=== PATIENT | female | born 1980 | race Caucasian/White ===

== ENCOUNTER 2023-09-13 04:43 | Emergency (ER) | payer BC ==
[~2023-09-13] VITALS: Ht 160 cm; Wt 54.9 kg
[2023-09-13 05:12] VITALS: BP_SYST 130; PULSE 89; RESP 20; TEMP 97.3; O2SAT 100
[2023-09-13] MEDS ORDERED: NACL 0.9% 1,000 ML IV ONE (05:30)
[2023-09-13] MEDS ORDERED: MORPHINE 4 MG INJ. 4 MG/ML VIAL IVP ONE (05:30)
[2023-09-13] MEDS ORDERED: ONDANSETRON HCL 4 MG/2 ML VIAL ONE (05:41)
[2023-09-13] MEDS ORDERED: ONDANSETRON HCL 4 MG/2 ML VIAL IVP ONE (05:45)
[2023-09-13 06:04] LABS: BASOPHILS % (AUTO) 0.3 % (0.0-2.0); EOSINOPHILS # (AUTO) 0.1 K/uL (0.0-0.4); EOSINOPHILS % (AUTO) 3.1 % (0.0-4.0); HEMATOCRIT 31.6 % (36-48); HEMOGLOBIN 9.6 g/dL (12.0-16.0); LYMPHOCYTES % (AUTO) 24.3 % (20.5-51.5); MEAN CORPUSCULAR HEMOGLOBIN 21 pg (27-31); MEAN CORPUSCULAR HGB CONC 31 % (32-36); MEAN CORPUSCULAR VOLUME 68 fL (79.0-98.0); MONOCYTES # (AUTO) 0.5 K/uL (0.0-1.0); MONOCYTES % (AUTO) 11.7 % (1.7-9.3); NEUTROPHILS # (AUTO) 2.5 K/uL (1.8-7.7); NEUTROPHILS % (AUTO) 60.6 % (40.0-70.0); PLATELET COUNT (AUTO) 359 K/uL (130-430); RED BLOOD CELL COUNT(AUTO) 4.62 MIL/uL (4.2-6.2); RED CELL DISTRIBUTION WIDTH 18.7 % (9.0-15.0); WHITE BLOOD COUNT (AUTO) 4.2 K/uL (4.8-10.8)
[2023-09-13 06:17] LABS: CALCIUM 8.5 mg/dL (8.4-11.0); CREATININE 0.65 mg/dL (0.55-1.30); POTASSIUM 3.6 mmol/L (3.5-5.1)
[2023-09-13 06:21] LABS: BILIRUBIN,URINE NEGATIVE (NEGATIVE); BLOOD, URINE NEGATIVE (NEGATIVE); CLARITY/URINE SL CLOUDY (CLEAR); COLOR,URINE YELLOW (YELLOW); GLUCOSE,URINE NEGATIVE (NEGATIVE); KETONES,URINE NEGATIVE (NEGATIVE); NITRITE, URINE NEGATIVE (NEGATIVE); PROTEIN URINE TRACE (NEGATIVE); UROBILINOGEN,URINE 0.2 (0.2-1.0)
[2023-09-13 06:28] LABS: ALBUMIN 3.6 g/dL (3.4-4.8); TOTAL BILIRUBIN 0.3 mg/dL (0.0-1.0)
[2023-09-13 06:42] LABS: RBC,URINE 0-3 /HPF (0-3)
[2023-09-13 06:43] LABS: BACTERIA,URINE FEW /HPF (None Seen); LEUKOCYTE ESTERASE ,URINE TRACE (NEGATIVE)
[2023-09-13] MEDS ORDERED: KETOROLAC TROMETHAMINE 15 MG VIAL IVP ONE (08:00)
[2023-09-13] MEDS ORDERED: ONDA-8 TL (08:21)
[2023-09-13] MEDS ORDERED: METR-154 PO (08:21)
[2023-09-13] MEDS ORDERED: CIPR500T5 PO (08:21)
[2023-09-13 08:39] VITALS: BP_SYST 136; PULSE 84; RESP 20; TEMP 97.3; O2SAT 99
== END 2023-09-13 08:38 | disposition home or self-care (01) ==
LOC: SED 04:43
DX: N39.0 Urinary tract infection, site not specified (principal); K52.9 Noninfective gastroenteritis and colitis, unspecified; R10.84 Generalized abdominal pain; R11.10 Vomiting, unspecified; R39.11 Hesitancy of micturition; Z88.1 Allergy status to other antibiotic agents; Z88.8 Allergy status to other drugs, medicaments and biological substances; Z79.899 Other long term (current) drug therapy
CPT/HCPCS: 99285; 74176; 96374; 96375; 96361; 80053; 81000; 81001; 83690; 85025; 87086; 87186; 36415; 76376; 81025; 83605; 81015; J1885; J2405; J2270; J7030

== ENCOUNTER 2023-11-06 15:03 | Emergency (ER) | payer BC ==
[~2023-11-06] VITALS: Ht 160 cm; Wt 54.4 kg
[~2023-11-06 15:03] MED LIST: CIPR500T5 PO; METR-154 PO; ONDA-8 TL
[2023-11-06 15:40] VITALS: BP_SYST 140; PULSE 92; RESP 22; TEMP 98.3
[2023-11-06 16:04] LABS: BILIRUBIN,URINE NEGATIVE (NEGATIVE); BLOOD, URINE 3+ (NEGATIVE); CLARITY/URINE CLEAR (CLEAR); COLOR,URINE YELLOW (YELLOW); GLUCOSE,URINE NEGATIVE (NEGATIVE); KETONES,URINE NEGATIVE (NEGATIVE); LEUKOCYTE ESTERASE ,URINE TRACE (NEGATIVE); NITRITE, URINE NEGATIVE (NEGATIVE); PROTEIN URINE 1+ (NEGATIVE); UROBILINOGEN,URINE 0.2 (0.2-1.0)
[2023-11-06 16:17] LABS: BASOPHILS % (AUTO) 0.3 % (0.0-2.0); EOSINOPHILS # (AUTO) 0.1 K/uL (0.0-0.4); EOSINOPHILS % (AUTO) 1.2 % (0.0-4.0); HEMOGLOBIN 9.7 g/dL (12.0-16.0); LYMPHOCYTES # (AUTO) 0.8 K/uL (1.0-5.5); LYMPHOCYTES % (AUTO) 18.4 % (20.5-51.5); MEAN CORPUSCULAR HEMOGLOBIN 22 pg (27-31); MEAN CORPUSCULAR HGB CONC 32 % (32-36); MEAN CORPUSCULAR VOLUME 68 fL (79.0-98.0); MONOCYTES # (AUTO) 0.4 K/uL (0.0-1.0); NEUTROPHILS # (AUTO) 3.3 K/uL (1.8-7.7); NEUTROPHILS % (AUTO) 72.1 % (40.0-70.0); PLATELET COUNT (AUTO) 418 K/uL (130-430); RED CELL DISTRIBUTION WIDTH 19.9 % (9.0-15.0); WHITE BLOOD COUNT (AUTO) 4.6 K/uL (4.8-10.8)
[2023-11-06 16:55] LABS: RBC,URINE >100 /HPF (0-3)
[2023-11-06 16:56] LABS: BACTERIA,URINE None Seen /HPF (None Seen)
[2023-11-06 17:12] LABS: PROTHROMBIN TIME 10.5 SECS (9.5-12.5)
[2023-11-06 17:35] LABS: ANISOCYTOSIS 2+; HYPOCHROMASIA 1+; OVALOCYTES MODERATE; TEAR DROP CELLS FEW
[2023-11-06 17:57] VITALS: BP_SYST 138; PULSE 84; RESP 18; TEMP 98.3; O2SAT 98
[2023-11-06] MEDS ORDERED: LEVO750T64 PO (18:17)
== END 2023-11-06 17:56 | disposition home or self-care (01) ==
LOC: SED 15:03
DX: N93.9 Abnormal uterine and vaginal bleeding, unspecified (principal); D64.9 Anemia, unspecified; J45.909 Unspecified asthma, uncomplicated; I10 Essential (primary) hypertension; Z88.1 Allergy status to other antibiotic agents; Z79.899 Other long term (current) drug therapy
CPT/HCPCS: 36415; 81000; 81001; 81015; 81025; 84702; 85025; 85610-TC; 85730-TC; 99283